=== PATIENT | male | born 1975 | race Caucasian/White ===

== ENCOUNTER 2019-04-30 19:00 | Observation (INO) | payer OTHER ==
[2019-04-30] MEDS ORDERED: METHYLPREDNISOLONE 125 MG INJ ONE (19:37)
[2019-04-30] MEDS ORDERED: FAMOTIDINE 20 MG/2 ML VIAL IV ONE (19:37)
[2019-04-30] MEDS ORDERED: DIPHENHYDRAMINE 50 MG/ML VIAL ONE (19:37)
[2019-04-30] MEDS ORDERED: EPINEPHRINE/PF 1 MG/ML AMP ONE (19:48)
[2019-04-30] MEDS ORDERED: EPINEPHRINE INH 0.5 ML VIAL IH ONE (19:51)
[2019-04-30] MEDS ORDERED: dexAMETHasone 10 MG/ML VIAL ONE (19:51)
[2019-04-30] MEDS ORDERED: DIPHENHYDRAMINE 50 MG/ML VIAL IV PRN (21:09)
--- NOTE | 2019-04-30 21:15 | ER ---
Nurse's Notes [facility] Name: Hamzah Mckeon Age: 44 yrs Sex: Male : 1975 Arrival Date: 04/30/2019 Time: 19:00 Bed 18 Private MD: Diagnosis: Angioneurotic edema Presentation: 04/30 19:02 Presenting complaint: Patient states: "My hole face is tingling and I feeling like jd3 under my tongue is swelling and it is harder to swallow." pt reporting mild difficulty of breathing. Transition of care: patient was not received from another setting of care. Onset: The symptoms/episode began/occurred just prior to arrival. Anaphylaxis evaluation, no signs or symptoms of anaphylaxis were noted. Onset of symptoms was April 30, 2019. Risk Assessment: Do you want to hurt yourself or someone else? Patient reports no desire to harm self or others. Initial Sepsis Screen: Does the patient meet any 2 criteria? No. Patient's initial sepsis screen is negative. Does the patient have a suspected source of infection? No. Patient's initial sepsis screen is negative. Care prior to arrival: None. 19:02 Method Of Arrival: Ambulatory jd3 19:02 Acuity: CHAKA 3 jd3 Historical: - Allergies: 19:06 No Known Allergies; jd3 - Home Meds: 19:06 losartan 100 mg oral tab [Active]; Hydrochlorothiazide Oral [Active]; carvedilol oral jd3 oral [Active]; - PMHx: 19:06 Hypertension; jd3 - PSHx: 19:06 left ankle, knee; right wrist; left eye; jd3 - Immunization history:: Adult Immunizations up to date. - Social history:: Smoking status: Patient/guardian denies using tobacco. - Ebola Screening: : Patient negative for fever greater than or equal to 101.5 degrees Fahrenheit, and additional compatible Ebola Virus Disease symptoms. Screenin:49 Abuse screen: Denies threats or abuse. Denies injuries from another. Nutritional rr5 screening: No deficits noted. Tuberculosis screening: No symptoms or risk factors identified. Fall Risk IV access (20 points). Total Singh Fall Scale indicates No Risk (0-24 pts). Assessment: 19:50 Reassessment: Pt moved to bed 2 at this time. General: Appears in no apparent distress. aa1 comfortable, Behavior is calm, cooperative, appropriate for age. Pain: Denies pain. Neuro: Level of Consciousness is awake, alert, obeys commands, Oriented to person, place, time, situation, Moves all extremities. Full function Speech is normal. Cardiovascular: Heart tones S1 S2 present Rhythm is regular. Respiratory: Airway is patent Respiratory effort is even, unlabored, Respiratory pattern is regular, symmetrical, Breath sounds are clear bilaterally. GI: No signs and/or symptoms were reported involving the gastrointestinal system. : No signs and/or symptoms were reported regarding the genitourinary system. EENT: Throat is clear minor swelling noted to lower lip. Derm: Skin is intact, is healthy with good turgor, Skin is pink, warm \\T\\ dry. Musculoskeletal: Circulation, motion, and sensation intact. Capillary refill < 3 seconds. 20:30 Reassessment: Patient appears in no apparent distress at this time. Patient and/or aa1 family updated on plan of care and expected duration. Pain level reassessed. Patient is alert, oriented x 3, equal unlabored respirations, skin warm/dry/pink. Awaiting provider reassessment. 21:31 Reassessment: Patient appears in no apparent distress at this time. Patient and/or aa1 family updated on plan of care and expected duration. Pain level reassessed. Patient is alert, oriented x 3, equal unlabored respirations, skin warm/dry/pink. Awaiting admission. Vital Signs: 19:06 BP 173 / 90; Pulse 95; Resp 19; Temp 98.8; Pulse Ox 96% ; Weight 142.88 kg; Height 6 jd3 ft. 1 in. (185.42 cm); Pain 6/10; 20:18 BP 153 / 92; Pulse 82; Resp 16; Pulse Ox 100% on R/A; Pain 0/10; aa1 21:31 BP 143 / 85; Pulse 84; Resp 16; Pulse Ox 99% on R/A; Pain 0/10; aa1 19:06 Body Mass Index 41.56 (142.88 kg, 185.42 cm) jd3 ED Course: 19:00 Patient arrived in ED. as 19:03 Triage completed. jd3 19:07 Arm band placed on. jd3 19:19 Cooper Reid PA is PHCP. dary 19:19 Mata Newton MD is Attending Physician. jmm 19:35 Inserted saline lock: 20 gauge in right hand, using aseptic technique. rr5 19:36 Carlos Ferguson RN is Primary Nurse. rr5 19:50 Patient has correct armband on for positive identification. Bed in low position. Call rr5 light in reach. Side rails up X2. Adult w/ patient. monitoring analyst on. Pulse ox on. NIBP on. 21:14 Victor M Jones MD is Hospitalizing Provider. [facility] 21:57 No provider procedures requiring assistance completed. Patient admitted, IV remains in aa1 place. Administered Medications: 19:36 Drug: Benadryl 50 mg Route: IVP; Site: right hand; rr5 05/01 07:40 Follow up: Response: No adverse reaction; Marked relief of symptoms em 04/30 19:38 Drug: Pepcid 20 mg Route: IVP; Site: right hand; rr5 05/01 07:40 Follow up: Response: No adverse reaction; Marked relief of symptoms em 04/30 19:40 Drug: SOLU-Medrol 125 mg Route: IVP; Site: right hand; rr5 05/01 07:40 Follow up: Response: No adverse reaction; Marked relief of symptoms em 04/30 19:50 Drug: Racemic EPINPHrine 0.5 ml Route: Inhalation; aj1 19:50 Drug: Decadron - Dexamethasone 10 mg Route: IVP; Site: right hand; aj1 05/01 07:40 Follow up: Response: No adverse reaction; Marked relief of symptoms em 07:40 Follow up: Response: No adverse reaction; Marked relief of symptoms em 04/30 19:50 Drug: EPINEPHrine 1mg/mL 1:1,000 0.3 ml Route: Sub-Q; Site: right upper arm; bb 05/01 07:40 Follow up: Response: No adverse reaction; Marked relief of symptoms em Outcome: 04/30 21:14 Decision to Hospitalize by Provider. m 23:00 Admitted to ER Hold. Please see [facility] for further documentation. tl2 23:00 Condition: stable 23:00 Discharge instructions given to patient. 05/01 08:21 Patient left the ED. em Signatures: Fatoumata Nava RN RN aj1 Karen Spring RN RN aa1 Cooper Reid PA PA jmm Munoz Pete, PROFESSOR OF FAMILY MEDICINE PROFESSOR OF FAMILY MEDICINE Essie Davis as Heather Merritt, RN RN bb Sarah Kim RN RN tl2 Rizwan Agustin RN RN jd3 Carlos Ferguson RN RN rr5 Corrections: (The following items were deleted from the chart) 04/30 19:07 19:02 Presenting complaint: Patient states: "My hole face is tingling and I feeling jd3 like under my tongue is swelling and it is harder to swallow." jd3
--- NOTE | 2019-04-30 21:16 | EDPHYS ---
Physician Documentation [facility] Name: Hamzah Mckeon Age: 44 yrs Sex: Male : 1975 Arrival Date: 04/30/2019 Time: 19:00 Bed 18 Private MD: ED Physician Mata Newton HPI: 04/30 19:28 This 44 yrs old Male presents to ER via Ambulatory with complaints of jmm Allergic Reaction. 19:28 The patient presents with difficulty swallowing, localized swelling. Onset: The jmm symptoms/episode began/occurred gradually, 1 hour(s) ago. Associated signs and symptoms: Pertinent positives: shortness of breath. This is a 44 year old male with a history of htn that presents to the ED with complaints of swelling to his face, neck. Patient states he recently took his bp medication which included carvedilol and losartan. Denies rash, vomiting, abdominal pain. . Historical: - Allergies: 19:06 No Known Allergies; jd3 - Home Meds: 19:06 losartan 100 mg oral tab [Active]; Hydrochlorothiazide Oral [Active]; carvedilol oral jd3 oral [Active]; - PMHx: 19:06 Hypertension; jd3 - PSHx: 19:06 left ankle, knee; right wrist; left eye; jd3 - Immunization history:: Adult Immunizations up to date. - Social history:: Smoking status: Patient/guardian denies using tobacco. - Ebola Screening: : Patient negative for fever greater than or equal to 101.5 degrees Fahrenheit, and additional compatible Ebola Virus Disease symptoms. ROS: 21:08 Cardiovascular: Negative for chest pain, palpitations, and edema, Abdomen/GI: Negative jmm for abdominal pain, nausea, vomiting, diarrhea, and constipation, Back: Negative for injury and pain. 21:08 Neck: Positive for swelling. 21:08 Respiratory: Positive for 21:08 All other systems are negative. Exam: 21:08 Constitutional: This is a well developed, well nourished patient who is awake, alert, jmm and in no acute distress. Head/Face: atraumatic. Eyes: EOMI, no conjunctival erythema appreciated ENT: Moist Mucus Membranes Neck: Trachea midline, Supple Chest/axilla: Normal chest wall appearance and motion. Cardiovascular: Regular rate and rhythm. No edema appreciated Respiratory: Normal respirations, no respiratory distress appreciated Abdomen/GI: Non distended, soft Back: Normal ROM 21:08 ENT: no pharyngeal edema appreciated. . 21:08 Skin: mild erythema noted to the perioral region. 21:08 Neuro: Orientation: is normal, Mentation: is normal, Memory: is normal. 21:08 Psych: Behavior/mood is pleasant, cooperative. Vital Signs: 19:06 BP 173 / 90; Pulse 95; Resp 19; Temp 98.8; Pulse Ox 96% ; Weight 142.88 kg; Height 6 jd3 ft. 1 in. (185.42 cm); Pain 6/10; 20:18 BP 153 / 92; Pulse 82; Resp 16; Pulse Ox 100% on R/A; Pain 0/10; aa1 21:31 BP 143 / 85; Pulse 84; Resp 16; Pulse Ox 99% on R/A; Pain 0/10; aa1 19:06 Body Mass Index 41.56 (142.88 kg, 185.42 cm) jd3 MDM: 19:28 Patient medically screened. [facility] 21:13 Data reviewed: vital signs, nurses notes. ED course: Patient states symptoms have not jmm improved. Will observe due to concerns for angioedema. I discussed the patient with Dr. Jones whom accepted admission. . 04/30 21:24 Order name: CBC with Automated Diff [facility] 04/30 21:24 Order name: CBC with Automated Diff [facility] 04/30 21:24 Order name: Comprehensive Metabolic Panel [facility] 04/30 21:24 Order name: Comprehensive Metabolic Panel [facility] 05/01 08:11 Order name: CBC Smear Scan [facility] 04/30 19:33 Order name: Saline Lock; Complete Time: 19:49 [facility] 04/30 21:24 Order name: CONS Pharmacy Consult [facility] 04/30 21:24 Order name: Regular EDMS Administered Medications: 19:36 Drug: Benadryl 50 mg Route: IVP; Site: right hand; rr5 05/01 07:40 Follow up: Response: No adverse reaction; Marked relief of symptoms em 04/30 19:38 Drug: Pepcid 20 mg Route: IVP; Site: right hand; rr5 05/01 07:40 Follow up: Response: No adverse reaction; Marked relief of symptoms em 04/30 19:40 Drug: SOLU-Medrol 125 mg Route: IVP; Site: right hand; rr5 05/01 07:40 Follow up: Response: No adverse reaction; Marked relief of symptoms em 04/30 19:50 Drug: Racemic EPINPHrine 0.5 ml Route: Inhalation; aj 19:50 Drug: Decadron - Dexamethasone 10 mg Route: IVP; Site: right hand; aj1 05/01 07:40 Follow up: Response: No adverse reaction; Marked relief of symptoms em 07:40 Follow up: Response: No adverse reaction; Marked relief of symptoms em 04/30 19:50 Drug: EPINEPHrine 1mg/mL 1:1,000 0.3 ml Route: Sub-Q; Site: right upper arm; bb 05/01 07:40 Follow up: Response: No adverse reaction; Marked relief of symptoms em Disposition: 04/30/19 21:14 Hospitalization ordered by Victor M Jones for Observation. Preliminary diagnosis is Angioneurotic edema. - Bed requested for [facility] ER HOLD. - Status is Observation. em - Condition is Stable. - Problem is new. - Symptoms are unchanged. UTI on Admission? No Addendum: 05/04/2019 09:25 Co-signature as Attending Physician, Mata Newton MD I agree with the assessment and c perez plan of care. Signatures: Dispatcher [employer] EDMS Fatoumata Nava RN RN aj1 Zulema Lentz RN RN mw Anderson, Corey, MD MD cha Mickail, Joel, PA PA [facility] Pete Villanueva, YOU[employer]RECTIONS OFFICER YOU[employer]RECTIONS OFFICER em Heather Merritt RN RN bb Davies, Jonathon, RN RN jCarlos Berrios RN RN rr5 Corrections: (The following items were deleted from the chart) 04/30 21:09 19:28 This is a 44 year old male with a history of htn that presents to the ED with [facility] complaints. [facility] 21:39 21:14 Hospitalization Ordered by Victor M Jones MD for Observation. Preliminary zoe diagnosis is Angioneurotic edema. Bed requested for Telemetry/MedSurg (observation). Status is Observation. Condition is Stable. Problem is new. Symptoms are unchanged. UTI on Admission? No. [facility] 05/01 08:21 04/30 21:39 04/30/2019 21:14 Hospitalization Ordered by Victor M Jones MD for em Observation. Preliminary diagnosis is Angioneurotic edema. Bed requested for [facility] ER HOLD. Status is Observation. Condition is Stable. Problem is new. Symptoms are unchanged. UTI on Admission? No. mw
[2019-04-30] MEDS ORDERED: NA CHLORIDE 0.9% 1,000 ML IV SCH (22:00)
[2019-04-30] MEDS ORDERED: ALBUTEROL 2.5 MG/3 ML NEB SOL NEB SCH (22:00)
[2019-04-30 22:57] VITALS: BMI 41.5
[2019-04-30] MEDS ORDERED: NA CHLORIDE 0.9% 1,000 ML ONE (23:14)
[2019-05-01] MEDS ORDERED: IPRATROPIUM BROM 0.5MG/2.5ML ONE (03:18)
[2019-05-01] MEDS: IPRATROPIUM BROM 0.5MG/2.5ML NEB SCH ×2 (03:20→08:00)
[2019-05-01 04:16] VITALS: BP 146/80; TEMP 98
[2019-05-01 05:11] LABS: Absolute Lymphocytes (CBC) 1.8 K/uL (0.7-4.9); Basophils % 0.7 % (0-1.3); Hematocrit 44.9 % (39.6-49.0); Lymphocytes % 10.7 % (15.3-44.8); MPV 9.4 fL (7.6-11.3); RBC Red Blood Cell Count 5.08 M/uL (4.33-5.43)
--- NOTE | 2019-05-01 05:26 | P.HP ---
Certification for Inpatient Patient admitted to: Observation With expected LOS: <2 Midnights Patient will require the following post-hospital care: None Practitioner: I am a practitioner with admitting privileges, knowledge of patient current condition, hospital course, and medical plan of care. Services: Services provided to patient in accordance with Admission requirements found in Title 42 Section 412.3 of the Code of Federal Regulations Patient History Date of Service: 05/01/19 Reason for admission: Angioedema History of Present Illness: Patient is a 44-year-old gentleman who came to the hospital with swelling of his tongue and throat. He was admitted to the hospital for further arrangement. Patient was given losartan and developed angioedema. Will admit patient to the hospital for further evaluation. Allergies No Known Allergies Allergy (Unverified 04/30/19 22:42) Home Medications: Bisoprolol/Hctz [Ziac 02/01.25*] 04/30/19 Carvedilol [Coreg] 12.5 mg PO DAILY 04/30/19 Losartan Potassium 100 mg PO DAILY 04/30/19 - Past Medical/Surgical History Has patient received pneumonia vaccine in the past: No Diabetic: No -: HTN -: Ankle - Family History Father Family History: Reviewed- Non-Contributory - Social History Smoking Status: Never smoker Alcohol use: No CD- Drugs: No Caffeine use: No Place of Residence: Home Review of Systems 10-point ROS is otherwise unremarkable Physical Examination - Vital Signs Temperature: 98 F Blood Pressure: 146/80 Pulse: 93 Respirations: 18 Pulse Ox (%): 96 - Physical Exam General: Alert, In no apparent distress, Oriented x3 HEENT: Atraumatic, PERRLA, Mucous membr. moist/pink, EOMI, Sclerae nonicteric Neck: Supple, 2+ carotid pulse no bruit, No LAD, Without JVD or thyroid abnormality Respiratory: Clear to auscultation bilaterally, Normal air movement Cardiovascular: Regular rate/rhythm, Normal S1 S2, No murmurs Gastrointestinal: Normal bowel sounds, Soft and benign, Non-distended, No tenderness, No rebound, No guarding Musculoskeletal: No clubbing, No swelling, No tenderness Integumentary: No rashes Neurological: Normal gait, Normal speech, Normal strength at 5/5 x4 extr, Normal tone, Sensation intact, Cranial nerves 3-12 intact, Normal affect Lymphatics: No axilla or inguinal lymphadenopathy Assessment & Plan - Problems (Diagnosis) (1) Angioedema Current Visit: Yes Status: Acute - Plan Plan: 1. Gentle hydration 2. Steroids 3. Benadryl 4. Pepcid 5. Anticipate discharge home in the morning 6. GI and DVT prophylaxis Discharge Plan: Home - Advance Directives Does patient have a Living Will: Yes Does patient have a Durable POA for Healthcare: Yes - Code Status/Comfort Care Code Status Assessed: Yes Code Status: Full Code Critical Care: No Time Spent Managing PTS Care (In Minutes): 40
[2019-05-01 05:30] LABS: Bilirubin Total 0.4 mg/dL (0.2-1.0); Protein, Total 8.3 g/dL (6.4-8.2)
[2019-05-01] MEDS ORDERED: INFLUENZA VACCINE (for 3y+) 0.5 ML DOSE IMVAC ONE ×2 (07:54→08:00)
[2019-05-01 08:05] LABS: Blood Morphology Comment NOT SEEN (NOT SEEN); Platelet Estimate ADEQ; Urine White Blood Cell Casts OK
[2019-05-01 08:48] VITALS: O2SAT 99
[2019-05-01] MEDS ORDERED: FAMOTIDINE 20 MG/2 ML VIAL IV SCH (09:00)
[2019-05-01] MEDS ORDERED: METHYLPREDNISOLONE 125 MG INJ IV SCH (22:00)
== END 2019-05-01 08:20 | disposition home or self-care (01) ==
LOC: ER 19:00 → ERHOLD 21:10
PROVIDERS: ADMIT Hospitalist; ATTEND Hospitalist
DX: T78.3XXA Angioneurotic edema, initial encounter (principal); T88.7XXA Unspecified adverse effect of drug or medicament, initial encounter; T46.5X5A Adverse effect of other antihypertensive drugs, initial encounter; I10 Essential (primary) hypertension
CPT/HCPCS: 85025; 36415; 80053; 90471; 94640; 96375; 96372; 96374; 99285; J0171; J1200; Q2035; J1100; J7030; J2930; G0378 ×3

== ENCOUNTER 2019-05-03 19:18 | Emergency (ER) | payer OTHER ==
[2019-05-03] MEDS ORDERED: METOPROLOL TAR 25 MG TAB ONE ×2 (20:17→21:00)
[2019-05-03] MEDS ORDERED: ACETAMINOPHEN 500 MG TAB ONE (20:17)
[2019-05-03] MEDS ORDERED: NA CHLORIDE 0.9% 1,000 ML ONE (20:17)
--- NOTE | 2019-05-03 20:24 | RAD REPORT ---
EXAM DESCRIPTION: RAD - Chest Single View - 05/03/2019 8:13 pm CLINICAL HISTORY: CHEST PAIN Chest pain. COMPARISON: No comparisons FINDINGS: Portable technique limits examination quality. The lungs are grossly clear. The heart is upper limit normal in size. No displaced fractures. IMPRESSION: No acute intrathoracic process suspected.
--- NOTE | 2019-05-03 20:28 | RAD REPORT ---
EXAM DESCRIPTION: CT - Head Brain Wo Cont - 05/03/2019 8:20 pm CLINICAL HISTORY: hypertension;Headache COMPARISON: No comparisons TECHNIQUE: All CT scans are performed using dose optimization technique as appropriate and may inclu de automated exposure control or mA/KV adjustment according to patient size. FINDINGS: No intracranial hemorrhage, hydrocephalus or extra-axial fluid collection.No areas of brai n edema or evidence of midline shift. The paranasal sinuses and mastoids are clear. The calvarium is intact. IMPRESSION: No acute intracranial abnormality.
[2019-05-03 20:44] LABS: Absolute Lymphocytes (CBC) 3.4 K/uL (0.7-4.9); Basophils % 0.8 % (0-1.3); Lymphocytes % 21.1 % (15.3-44.8); MPV 9.5 fL (7.6-11.3); RBC Red Blood Cell Count 4.74 M/uL (4.33-5.43)
[2019-05-03 20:50] LABS: Protime INR 0.85
[2019-05-03] MEDS ORDERED: ASPIRIN 81 MG CHEWABLE TABLET ONE (21:00)
[2019-05-03 22:35] LABS: ALT/SGPT 36 U/L (12-78); AST/SGOT 9 U/L (15-37); Alkaline Phosphatase 83 U/L (45-117); BUN Blood Urea Nitrogen 23 mg/dL (7-18); Bicarbonate 30 mmol/L (21-32); Bilirubin Direct < 0.1 mg/dL (0-0.2); Bilirubin Total 0.2 mg/dL (0.2-1.0); Glucose Level 143 mg/dL (74-106); Magnesium 2.3 mg/dL (1.8-2.4); NT PRO-BNP 193 pg/mL (<125); Potassium 3.6 mmol/L (3.5-5.1); Protein, Total 7.9 g/dL (6.4-8.2); Sodium Level 139 mmol/L (136-145); Troponin (Emerg Dept Use Only) < 0.02 ng/mL (0.0-0.045)
--- NOTE | 2019-05-03 23:15 | ER ---
Nurse's Notes [facility] Name: Hamzah Mckeon Age: 44 yrs Sex: Male : 1975 Arrival Date: 05/03/2019 Time: 19:19 Bed 17 Private MD: Diagnosis: Hypertensive heart disease;Headache Presentation: 05/03 19:23 Presenting complaint: Patient states: High BP at 198/105 and headache. "I was here ca1 for allergic reaction to Losartan, so they me took off of it. They did not give a as substitute to it. I have a schedule with my doctor tomorrow but I I got worried with my BP". Transition of care: patient was not received from another setting of care. Onset of symptoms was May 03, 2019. Risk Assessment: Do you want to hurt yourself or someone else? Patient reports no desire to harm self or others. Initial Sepsis Screen: Does the patient meet any 2 criteria? No. Patient's initial sepsis screen is negative. Does the patient have a suspected source of infection? No. Patient's initial sepsis screen is negative. Care prior to arrival: None. 19:23 Method Of Arrival: Ambulatory ca1 19:23 Acuity: CHAKA 3 ca1 Historical: - Allergies: 19:26 Losartan; ca1 - Home Meds: 19:26 carvedilol Oral [Active]; Hydrochlorothiazide Oral [Active]; ca1 - PMHx: 19:26 Hypertension; ca1 - Immunization history:: Adult Immunizations up to date, Flu vaccine is up to date. - Social history:: Smoking status: Patient/guardian denies using tobacco. - Ebola Screening: : Patient negative for fever greater than or equal to 101.5 degrees Fahrenheit, and additional compatible Ebola Virus Disease symptoms Patient denies exposure to infectious person Patient denies travel to an Ebola-affected area in the 21 days before illness onset No symptoms or risks identified at this time. Screenin:08 Abuse screen: Denies threats or abuse. Denies injuries from another. Nutritional lp1 screening: No deficits noted. Tuberculosis screening: No symptoms or risk factors identified. Fall Risk None identified. Assessment: 20:07 General: Appears in no apparent distress. Behavior is calm, cooperative, appropriate lp1 for age. Pain: Complains of pain in head Pain does not radiate. Pain currently is 8 out of 10 on a pain scale. Neuro: Level of Consciousness is awake, alert, obeys commands, Oriented to person, place, time, situation, Reports headache. Cardiovascular: Patient's skin is warm and dry. Respiratory: Respiratory effort is even, unlabored. GI: No signs and/or symptoms were reported involving the gastrointestinal system. : No signs and/or symptoms were reported regarding the genitourinary system. EENT: No signs and/or symptoms were reported regarding the EENT system. Derm: Skin is pink, warm \\T\\ dry. Musculoskeletal: No deficits noted. 21:15 Reassessment: Patient appears in no apparent distress at this time. No changes from lp1 previously documented assessment. Patient and/or family updated on plan of care and expected duration. Pain level reassessed. 22:30 Reassessment: Patient is alert, oriented x 3, equal unlabored respirations, skin lp1 warm/dry/pink. Patient states headache improved Patient states feeling better. 23:30 Reassessment: Patient appears in no apparent distress at this time. No changes from lp1 previously documented assessment. Patient states feeling better. Patient states symptoms have improved. Vital Signs: 19:26 BP 183 / 97; Pulse 77; Resp 16 S; Temp 98.4(O); Pulse Ox 100% on R/A; Weight 145.15 kg ca1 (R); Height 6 ft. 1 in. (185.42 cm) (R); Pain 7/10; 19:45 BP 182 / 91; Pulse 79; Resp 18; Pulse Ox 98% on R/A; lp1 20:00 BP 170 / 94; Pulse 84; Resp 17; Pulse Ox 99% on R/A; lp1 21:00 BP 186 / 99; Pulse 72; Resp 18; Pulse Ox 98% on R/A; lp1 21:27 BP 165 / 93; Pulse 68; Resp 18; Pulse Ox 99% on R/A; lp1 22:30 BP 172 / 90; Pulse 66; Resp 18; Pulse Ox 99% on R/A; lp1 23:00 BP 162 / 91; Pulse 67; Resp 18; Pulse Ox 98% on R/A; lp1 23:48 BP 153 / 95; Pulse 65; Resp 18; Pulse Ox 98% on R/A; lp1 19:26 Body Mass Index 42.22 (145.15 kg, 185.42 cm) ca1 ED Course: 19:19 Patient arrived in ED. cl3 19:24 Mata Galicia PA is PHCP. cp 19:24 Mata Newton MD is Attending Physician. cp 19:25 Triage completed. ca1 19:26 Shawnee Washington, RN is Primary Nurse. lp1 19:26 Arm band placed on right wrist. ca1 20:09 Patient has correct armband on for positive identification. Placed in gown. Bed in low lp1 position. final armature tester on. Pulse ox on. NIBP on. 20:12 XRAY Chest (1 view) In Process Unspecified. EDMS 20:20 CT completed. Patient tolerated procedure well. Patient moved back from CT. bq 20:21 CT Head Brain wo Cont In Process Unspecified. EDMS 20:42 Missed attempt(s): 20 gauge in right hand. lp1 20:51 Missed attempt(s): 20 gauge in left antecubital area. lp1 23:20 No provider procedures requiring assistance completed. IV discontinued, No lp1 redness/swelling at site. Pressure dressing applied. Administered Medications: 20:30 Drug: Metoprolol 25 mg Route: PO; lp1 21:36 Follow up: Response: No adverse reaction lp1 20:30 Drug: Tylenol 1000 mg Route: PO; lp1 21:36 Follow up: Response: No adverse reaction lp1 21:36 Drug: Aspirin Chewable Tablet 324 mg Route: PO; lp1 22:30 Follow up: Response: No adverse reaction lp1 21:36 Drug: Metoprolol 25 mg Route: PO; lp1 23:00 Follow up: Response: Blood pressure is lowered lp1 22:00 Drug: NS 0.9% 1000 ml Route: IV; Rate: 1 bolus; Site: left antecubital; jb4 Outcome: 23:13 Discharge ordered by . cp 23:30 Discharged to home ambulatory, with significant other. lp1 23:30 Condition: good 23:30 Discharge instructions given to patient, Instructed on discharge instructions, follow up and referral plans. medication usage, Demonstrated understanding of instructions, follow-up care, medications, Prescriptions given X 1. 23:49 Patient left the ED. lp1 Signatures: Dispatcher [employer] EDMS Radha Noguera Shawnee Washington RN RN lp1 PageMata PA PA cp Bryson, James, RN RN jb4 Maria De Jesus Soler, RN RN ca1 Walter Tena cl3
--- NOTE | 2019-05-03 23:16 | EDPHYS ---
Physician Documentation [facility] Name: Hamzah Mckeon Age: 44 yrs Sex: Male : 1975 Arrival Date: 05/03/2019 Time: 19:19 Bed 17 Private MD: WILL Physician Mata Newton HPI: 05/03 20:00 This 44 yrs old Male presents to ER via Ambulatory with complaints of High cp Blood Pressure. 20:00 The patient has elevated blood pressure and discovered this at home. Onset: The cp symptoms/episode began/occurred today. Associated signs and symptoms: Pertinent positives: headache, chest heaviness since , Pertinent negatives: dizziness, dyspnea, vomiting, weakness. Severity of symptoms: At its worst the blood pressure was 198 mm Hg. The patient has been recently been admitted at [facility], was discharged last week, allergic reaction to blood pressure medication. Patient reports he was hospitalized last for allergic reaction to blood pressure medication Losartan. Patient reports medication was discontinued but he was not prescribed replacement blood pressure medication. Patient reports having appt with PCP tomorrow. Measured elevated blood pressure today. Historical: - Allergies: 19:26 Losartan; ca1 - Home Meds: 19:26 carvedilol Oral [Active]; Hydrochlorothiazide Oral [Active]; ca1 - PMHx: 19:26 Hypertension; ca1 - Immunization history:: Adult Immunizations up to date, Flu vaccine is up to date. - Social history:: Smoking status: Patient/guardian denies using tobacco. - Ebola Screening: : Patient negative for fever greater than or equal to 101.5 degrees Fahrenheit, and additional compatible Ebola Virus Disease symptoms Patient denies exposure to infectious person Patient denies travel to an Ebola-affected area in the 21 days before illness onset No symptoms or risks identified at this time. ROS: 20:10 Constitutional: Negative for body aches, chills, fever, poor PO intake. cp 20:10 Eyes: Negative for injury, pain, redness, and discharge. cp 20:10 ENT: Negative for drainage from ear(s), ear pain, sore throat, difficulty swallowing, difficulty handling secretions. 20:10 Cardiovascular: Positive for chest heaviness, Negative for edema, palpitations. 20:10 Respiratory: Negative for cough, shortness of breath, wheezing. 20:10 Abdomen/GI: Negative for abdominal pain, nausea, vomiting, and diarrhea, black/tarry stool, rectal bleeding. 20:10 Back: Negative for pain at rest, pain with movement, radiated pain. 20:10 : Negative for urinary symptoms. 20:10 Skin: Negative for rash. 20:10 Neuro: Positive for headache, Negative for altered mental status, syncope, weakness. 20:10 All other systems are negative. Exam: 20:18 Constitutional: The patient appears in no acute distress, alert, awake, cp non-diaphoretic, non-toxic, well developed, well nourished, obese. 20:18 Head/Face: Normocephalic, atraumatic. cp 20:18 Eyes: Periorbital structures: appear normal, Pupils: equal, round, and reactive to light and accomodation, Extraocular movements: intact throughout, Conjunctiva: normal, no exudate, no injection, Sclera: no appreciated abnormality, Lids and lashes: appear normal, bilaterally. 20:18 ENT: External ear(s): are unremarkable, Ear canal(s): are normal, clear, TM's: dullness, bilaterally, Nose: is normal, Mouth: Lips: moist, Oral mucosa: pink and intact, moist, Posterior pharynx: is normal, airway is patent, no erythema, no exudate, Voice: is normal. 20:18 Neck: ROM/movement: is normal, is supple, without pain, no range of motions limitations, no nuchal rigidity. 20:18 Chest/axilla: Inspection: normal, Palpation: is normal, no crepitus, no tenderness. 20:18 Cardiovascular: Rate: normal, Rhythm: regular, Pulses: Pulses are 2+ in right radial artery and left radial artery. Edema: is not appreciated, JVD: is not appreciated. 20:18 Respiratory: the patient does not display signs of respiratory distress, Respirations: normal, no use of accessory muscles, no retractions, no splinting, no tachypnea, labored breathing, is not present, Breath sounds: are clear throughout, no decreased breath sounds, no stridor, no wheezing. 20:18 Abdomen/GI: Inspection: abdomen appears normal, Palpation: abdomen is soft and non-tender, in all quadrants. 20:18 Back: pain, is absent, ROM is normal. 20:18 Skin: no rash present. 20:18 Neuro: Orientation: to person, place \T\ time. Mentation: is normal, Cerebellar function: is grossly normal, Motor: moves all fours, strength is normal, Sensation: is normal. 20:20 ECG was reviewed by the Attending Physician. cp Vital Signs: 19:26 BP 183 / 97; Pulse 77; Resp 16 S; Temp 98.4(O); Pulse Ox 100% on R/A; Weight 145.15 kg ca1 (R); Height 6 ft. 1 in. (185.42 cm) (R); Pain 7/10; 19:45 BP 182 / 91; Pulse 79; Resp 18; Pulse Ox 98% on R/A; lp1 20:00 BP 170 / 94; Pulse 84; Resp 17; Pulse Ox 99% on R/A; lp1 21:00 BP 186 / 99; Pulse 72; Resp 18; Pulse Ox 98% on R/A; lp1 21:27 BP 165 / 93; Pulse 68; Resp 18; Pulse Ox 99% on R/A; lp1 22:30 BP 172 / 90; Pulse 66; Resp 18; Pulse Ox 99% on R/A; lp1 23:00 BP 162 / 91; Pulse 67; Resp 18; Pulse Ox 98% on R/A; lp1 23:48 BP 153 / 95; Pulse 65; Resp 18; Pulse Ox 98% on R/A; lp1 19:26 Body Mass Index 42.22 (145.15 kg, 185.42 cm) ca1 MDM: 19:27 Patient medically screened. cp 20:30 Differential diagnosis: hypertensive crisis, Malignant HTN, CVA, intracerebral cp hemorrhage, acute MD. 23:12 Data reviewed: vital signs, nurses notes, lab test result(s), EKG, radiologic studies, cp CT scan, plain films, and as a result, I will discharge patient. 23:12 Test interpretation: by ED physician or midlevel provider: ECG, plain radiologic cp studies, chest xray negative for infiltrates. Counseling: I had a detailed discussion with the patient and/or guardian regarding: the historical points, exam findings, and any diagnostic results supporting the discharge/admit diagnosis, the presence of at least one elevated blood pressure reading (>120/80) during this emergency department visit, lab results, radiology results, the need for outpatient follow up, for definitive care, a family practitioner, to return to the emergency department if symptoms worsen or persist or if there are any questions or concerns that arise at home. Response to treatment: the patient's symptoms have markedly improved after treatment, and as a result, I will discharge patient. 05/03 20: Order name: Basic Metabolic Panel; Complete Time: 23:07 cp 05/03 23:07 Interpretation: Normal except: GLUC 143; BUN 23. cp 05/03 20: Order name: CBC with Diff; Complete Time: 20:51 cp 05/03 20:51 Interpretation: Normal except: WBC 16.0; NEUT A 10.5; MNA 1.6. cp 05/03 20: Order name: LFT's; Complete Time: 23:07 cp 05/03 20: Order name: Magnesium; Complete Time: 23:07 cp 05/03 20: Order name: NT PRO-BNP; Complete Time: 23:07 cp 05/03 20:01 Order name: PT-INR; Complete Time: 23:07 cp 05/03 20: Order name: Troponin (emerg Dept Use Only); Complete Time: 23:07 cp 05/03 23:07 Interpretation: Within normal limits. cp 05/03 20: Order name: XRAY Chest (1 view); Complete Time: 20:51 cp 05/03 20:51 Interpretation: Report review. cp 05/03 20: Order name: CT Head Brain wo Cont; Complete Time: 20:51 cp 05/03 20:52 Interpretation: Report reviewed. cp 05/03 20: Order name: EKG; Complete Time: 20:02 cp 05/03 20: Order name: Cardiac monitoring; Complete Time: 20:22 cp 05/03 20: Order name: EKG - Nurse/Tech; Complete Time: 20:22 cp 05/03 20: Order name: IV Saline Lock; Complete Time: 22:19 cp 05/03 20: Order name: Labs collected and sent; Complete Time: 20:52 cp 05/03 20: Order name: O2 Per Protocol; Complete Time: 20:22 cp 05/03 20:01 Order name: O2 Sat Monitoring; Complete Time: 20:22 cp EC:20 Rate is 74 beats/min. Rhythm is regular. CO interval is normal. QRS interval is cp prolonged at 118 msec. QT interval is normal. Interpreted by me. Reviewed by me. Administered Medications: 20:30 Drug: Metoprolol 25 mg Route: PO; lp1 21:36 Follow up: Response: No adverse reaction lp1 20:30 Drug: Tylenol 1000 mg Route: PO; lp1 21:36 Follow up: Response: No adverse reaction lp1 21:36 Drug: Aspirin Chewable Tablet 324 mg Route: PO; lp1 22:30 Follow up: Response: No adverse reaction lp1 21:36 Drug: Metoprolol 25 mg Route: PO; lp1 23:00 Follow up: Response: Blood pressure is lowered lp1 22:00 Drug: NS 0.9% 1000 ml Route: IV; Rate: 1 bolus; Site: left antecubital; jb4 Disposition: 05/04 09:50 Co-signature as Attending Physician, Mata Newton MD I agree with the assessment and bill plan of care. Disposition: 05/03/19 23:13 Discharged to Home. Impression: Hypertensive heart disease, Headache. - Condition is Stable. - Discharge Instructions: General Headache Without Cause, Hypertension, How to Take Your Blood Pressure, [id number], Aspirin and Your Heart, Managing Your Hypertension. - Prescriptions for Metoprolol Tartrate 25 mg Oral Tablet - take 1 tablet by ORAL route 2 times per day with a meal; 20 tablet. - Medication Reconciliation Form, Thank You Letter, Antibiotic Education, Prescription Opioid Use form. - Follow up: Private Physician; When: Tomorrow; Reason: Recheck today's complaints. - Problem is an ongoing problem. - Symptoms have improved. Signatures: Dispatcher [employer] EDMata Diallo MD MD cha Pena, Laura RN RN lp1 Mata Galicia PA PA cp Bryson, James, RN RN jb4 Maria De Jesus Soler RN RN ca1 Corrections: (The following items were deleted from the chart) 05/03 20:51 20:51 Normal except: WBC 16.0; NEUT A 10.5. cp cp 23:49 23:13 05/03/2019 23:13 Discharged to Home. Impression: Hypertensive heart disease; lp1 Headache. Condition is Stable. Forms are Medication Reconciliation Form, Thank You Letter, Antibiotic Education, Prescription Opioid Use. Follow up: Private Physician; When: Tomorrow; Reason: Recheck today's complaints. Problem is an ongoing problem. Symptoms have improved. cp
[2019-05-04 01:16] VITALS: TEMP 98.4
[2019-05-04 01:25] VITALS: O2SAT 98
[2019-05-04 01:26] VITALS: BP 153/95
--- NOTE | 2019-05-04 05:30 | EKG ---
Test Date: 2019-05-03 Test Time: 20:13:41 Parts Technician: DAMI MEASUREMENT RESULTS: Intervals: Rate: 74 ME: 168 QRSD: 118 QT: 414 QTc: 459 Mitchell: P: 64 ME: 168 QRS: 92 T: 32 INTERPRETIVE STATEMENTS: Normal sinus rhythm Rightward axis Nonspecific intraventricular conduction delay Borderline ECG No previous ECG available for comparison Electronically Signed On 05-04-19 05:30:10 THREAD DRAWER by Armando Mata
== END 2019-05-03 23:49 | disposition home or self-care (01) ==
LOC: ER 19:18
DX: I11.9 Hypertensive heart disease without heart failure (principal); Z88.8 Allergy status to other drugs, medicaments and biological substances
CPT/HCPCS: 93005; 85025; 80048; 36415; 83735; 85610; 80076; 84484; 83880; 70450; 71045; 99285; J7030

== ENCOUNTER 2019-05-17 16:19 | Emergency (ER) | payer OTHER ==
[2019-05-17] MEDS ORDERED: HYDROCODONE/APAP 10/325 TAB ONE (16:45)
[2019-05-17] MEDS ORDERED: LIDOCAINE 2% MPF 5 ML VIAL ONE (16:45)
--- NOTE | 2019-05-17 18:05 | ER ---
Nurse's Notes [facility] Name: Hamzah Mckeon Age: 44 yrs Sex: Male : 1975 Arrival Date: 05/17/2019 Time: 16:22 Bed 27 Private MD: Diagnosis: Laceration with foreign body of left index finger without damage to nail Presentation: 05/17 16:35 Presenting complaint: Patient states: His left index finger got smashed in the boom of aj1 a repo truck. Laceration to left index finger, bleeding controlled. Transition of care: patient was not received from another setting of care. Onset of symptoms was May 17, 2019. Risk Assessment: Do you want to hurt yourself or someone else? Patient reports no desire to harm self or others. Initial Sepsis Screen: Does the patient meet any 2 criteria? No. Patient's initial sepsis screen is negative. Does the patient have a suspected source of infection? No. Patient's initial sepsis screen is negative. Care prior to arrival: None. 16:35 Method Of Arrival: Ambulatory [facility] 16:35 Acuity: CHAKA 4 aj1 Triage Assessment: 16:38 General: Appears in no apparent distress. uncomfortable, Behavior is calm, cooperative, aj1 appropriate for age. Pain: Complains of pain in dorsal aspect of middle phalanx of left index finger and dorsal aspect of proximal phalanx of left index finger. Historical: - Allergies: 16:38 Losartan; aj1 - Home Meds: 16:38 carvedilol Oral [Active]; Hydrochlorothiazide Oral [Active]; Metformin Oral [Active]; aj1 atorvastatin oral oral [Active]; - PMHx: 16:38 Hypertension; Diabetes - NIDDM; aj1 - Immunization history:: Last tetanus immunization: up to date. - Social history:: Smoking status: Patient/guardian denies using tobacco. - Ebola Screening: : Patient denies travel to an Ebola-affected area in the 21 days before illness onset. Screenin:39 Abuse screen: Denies threats or abuse. Denies injuries from another. Nutritional aj1 screening: No deficits noted. Tuberculosis screening: No symptoms or risk factors identified. 19:03 Fall Risk None identified. aj1 Assessment: 16:39 General: Appears in no apparent distress. uncomfortable, Behavior is calm, cooperative, aj1 appropriate for age. Pain: Complains of pain in dorsal aspect of middle phalanx of left index finger and dorsal aspect of proximal phalanx of left index finger. Neuro: Level of Consciousness is awake, alert, obeys commands, Oriented to person, place, time, situation. Cardiovascular: Patient's skin is warm and dry. Respiratory: Airway is patent Respiratory effort is even, unlabored, Respiratory pattern is regular, symmetrical. GI: No signs and/or symptoms were reported involving the gastrointestinal system. : No signs and/or symptoms were reported regarding the genitourinary system. EENT: No signs and/or symptoms were reported regarding the EENT system. Derm: Skin is pink, warm \T\ dry. Musculoskeletal: Range of motion: limited in DIP of left index finger, PIP of left index finger and MCP of left index finger. Injury Description: Laceration sustained to left index finger. 17:45 Reassessment: Patient appears in no apparent distress at this time. No changes from aj1 previously documented assessment. Patient and/or family updated on plan of care and expected duration. Pain level reassessed. Patient is alert, oriented x 3, equal unlabored respirations, skin warm/dry/pink. 18:45 Reassessment: Patient appears in no apparent distress at this time. No changes from aj1 previously documented assessment. Patient and/or family updated on plan of care and expected duration. Pain level reassessed. Patient is alert, oriented x 3, equal unlabored respirations, skin warm/dry/pink. Vital Signs: 16:38 BP 153 / 100; Pulse 82; Resp 18; Temp 98.2; Pulse Ox 100% on R/A; Weight 142.88 kg (R); aj1 Height 6 ft. 1 in. (185.42 cm) (R); Pain 8/10; 19:03 BP 147 / 92; Pulse 88; Resp 18; Pulse Ox 97% ; aj1 16:38 Body Mass Index 41.56 (142.88 kg, 185.42 cm) aj1 ED Course: 16:22 Patient arrived in ED. mr 16:30 [facility]aw [facility]C [facility] la1 16:31 Victor M Chávez MD is Attending Physician. la1 16:35 Fatoumata Nava RN is Primary Nurse. aj1 16:36 Triage completed. aj1 16:38 Arm band placed on. aj1 16:39 Patient has correct armband on for positive identification. aj1 16:39 No provider procedures requiring assistance completed. aj1 17:28 Hand Left 3 View XRAY In Process Unspecified. EDMS 19:00 Dressings: non-adherent dressing x 1 left index finger covered with Kerlix and secured aj1 with tape. 19:03 Patient did not have IV access during this emergency room visit. aj1 Administered Medications: 16:45 Drug: Justin 10 mg-325 mg 1 tabs Route: PO; aj1 19:04 Follow up: Response: No adverse reaction aj1 16:45 Drug: Lidocaine (2 %) 5 ml {Note: Adminsitered by Hakeem Bailey NP.} Volume: 5 ml; Route: aj1 Infiltration; 19:04 Follow up: Response: No adverse reaction aj1 Outcome: 18:05 Discharge ordered by MD. la1 19:03 Discharged to home ambulatory. aj1 19:03 Condition: good 19:03 Discharge instructions given to patient, Instructed on discharge instructions, follow up and referral plans. wound care, Demonstrated understanding of instructions, follow-up care, wound care. 19:04 Patient left the ED. aj1 Signatures: Dispatcher [employer] EDMS Fatoumata Nava RN RN aj Lucia Kevin Lee, BIOSTATISTICS MANAGER-C BIOSTATISTICS MANAGER-Cla1 Corrections: (The following items were deleted from the chart) 16:52 16:35 Presenting complaint: Patient states: His right index finger got smashed in the aj1 boom of a repo truck. Laceration to right index finger, bleeding controlled aj1 16:53 16:38 Pain: Complains of pain in dorsal aspect of middle phalanx of right index finger aj1 and dorsal aspect of proximal phalanx of right index finger aj1 16:53 16:39 Pain: Complains of pain in dorsal aspect of proximal phalanx of right index aj1 finger and dorsal aspect of middle phalanx of right index finger aj1 16:53 16:39 Musculoskeletal: Range of motion: limited in DIP of right index finger, PIP of aj1 right index finger and MCP of right index finger aj1 16:53 16:39 Injury Description: Laceration sustained to right index finger aj1 aj1
--- NOTE | 2019-05-17 18:06 | EDPHYS ---
Physician Documentation [facility] Name: Hamzah Mckeon Age: 44 yrs Sex: Male : 1975 Arrival Date: 05/17/2019 Time: 16:22 Bed 27 Private MD: ED Physician Victor M Chávez HPI: 05/17 16:52 This 44 yrs old Male presents to ER via Ambulatory with complaints of Finger la1 laceration. 16:52 The patient or guardian reports a laceration, irregular, 4 cm(s), ragged. The la1 complaints affect the palmar aspect of middle phalanx of left index finger and palmar aspect of proximal phalanx of left index finger. Context: The problem was sustained at work, resulted from a crush injury, by industrial equipment. Onset: The symptoms/episode began/occurred just prior to arrival. Modifying factors: The symptoms are alleviated by nothing, the symptoms are aggravated by movement. Associated signs and symptoms: Pertinent negatives: cyanosis distally, decreased sensation distally, nausea, numbness distally, tingling distally. Severity of symptoms: At their worst the symptoms were moderate. The patient has not experienced similar symptoms in the past. pt reports his finger was crushed in a boom from a repo truck at work. Historical: - Allergies: 16:38 Losartan; aj1 - Home Meds: 16:38 carvedilol Oral [Active]; Hydrochlorothiazide Oral [Active]; Metformin Oral [Active]; aj1 atorvastatin oral oral [Active]; - PMHx: 16:38 Hypertension; Diabetes - NIDDM; aj1 - Immunization history:: Last tetanus immunization: up to date. - Social history:: Smoking status: Patient/guardian denies using tobacco. - Ebola Screening: : Patient denies travel to an Ebola-affected area in the 21 days before illness onset. ROS: 16:53 Constitutional: Negative for fever, chills, and weight loss, Eyes: Negative for injury, la1 pain, redness, and discharge, ENT: Negative for injury, pain, and discharge, Neck: Negative for injury, pain, and swelling, Cardiovascular: Negative for chest pain, palpitations, and edema, Respiratory: Negative for shortness of breath, cough, wheezing, and pleuritic chest pain, Abdomen/GI: Negative for abdominal pain, nausea, vomiting, diarrhea, and constipation, Back: Negative for injury and pain, : Negative for injury, bleeding, discharge, and swelling. 16:53 Neuro: Negative for headache, weakness, numbness, tingling, and seizure. 16:53 MS/extremity: Positive for pain, tenderness, of the palmar aspect of proximal phalanx of left index finger. 16:53 Skin: Positive for laceration(s), of the MCP of left index finger and PIP of left index finger. Exam: 16:54 Constitutional: This is a well developed, well nourished patient who is awake, alert, la1 and in no acute distress. Head/Face: Normocephalic, atraumatic. Eyes: Pupils equal round and reactive to light, extra-ocular motions intact. ENT: . Mucous membranes moist. Neck: No Meningismus. Chest/axilla: Normal chest wall appearance and motion. Respiratory: No increased work of breathing Abdomen/GI: Soft, non-tender, with normal bowel sounds. Back: No spinal tenderness. No costovertebral tenderness. Full range of motion. 16:54 MS/ Extremity: Pulses equal, no cyanosis. Neurovascular intact. Full, normal range of motion. 16:54 Skin: injury, laceration(s), the wound is approximately 4 cm(s), with a depth of 1 cm(s), of the MCP of left index finger and PIP of left index finger, that can be described as no foreign body, irregular, jagged, with mild bleeding. Vital Signs: 16:38 BP 153 / 100; Pulse 82; Resp 18; Temp 98.2; Pulse Ox 100% on R/A; Weight 142.88 kg (R); aj1 Height 6 ft. 1 in. (185.42 cm) (R); Pain 8/10; 19:03 BP 147 / 92; Pulse 88; Resp 18; Pulse Ox 97% ; aj1 16:38 Body Mass Index 41.56 (142.88 kg, 185.42 cm) aj1 Procedures: 16:50 Nerve block: (digital) of dorsal aspect of proximal phalanx of left index finger la1 Medication: Lidocaine 1% without epinephrine Marcaine 0.5%, Amount: 4 mls were injected, Effect: the patient's symptoms are improved, Set up for procedure. Performed by Yaw Attema PICKLE SORTER-C Patient tolerated well. Laceration: 18:03 Wound Repair of 5cm ( 2.0in ) subcutaneous laceration to palmar aspect of middle la1 phalanx of left index finger and palmar aspect of proximal phalanx of left index finger. Irregularly shaped.. Distal neuro/vascular/tendon intact. Anesthesia: Digital block administered with 4 mls of 0.5% marcaine. Wound prep: Moderate cleansing, Wound irrigation with saline by nurse, Wound margin revised, Copious irrigation. Skin closed with 9 4-0 Prolene using simple sutures and sterile technique. Dressed with non-adherent dressing. Patient tolerated well. MDM: 16:31 Patient medically screened. la1 18:08 Data reviewed: vital signs, nurses notes, I have discussed the patient's la1 presentation/case with the attending Emergency Department Physician; and as a result, I will discharge patient. Data interpreted: Pulse oximetry: on room air is 100 %. Interpretation: normal. Counseling: I had a detailed discussion with the patient and/or guardian regarding: the historical points, exam findings, and any diagnostic results supporting the discharge/admit diagnosis, the presence of at least one elevated blood pressure reading (>120/80) during this emergency department visit, radiology results, the need for outpatient follow up, a family practitioner, to return to the emergency department if symptoms worsen or persist or if there are any questions or concerns that arise at home. 05/17 16:35 Order name: Hand Left 3 View XRAY la1 05/17 16:35 Order name: Suture Tray at Bedside; Complete Time: 17:09 la1 Administered Medications: 16:45 Drug: Pelzer 10 mg-325 mg 1 tabs Route: PO; aj1 19:04 Follow up: Response: No adverse reaction aj1 16:45 Drug: Lidocaine (2 %) 5 ml {Note: Adminsitered by Hakeem Bailey DELICATESSEN MANAGER.} Volume: 5 ml; Route: aj1 Infiltration; 19:04 Follow up: Response: No adverse reaction aj1 Disposition: 05/18 15:53 Co-signature as Attending Physician, Victor M Chávez MD. ma2 Disposition: 05/17/19 18:05 Discharged to Home. Impression: Laceration with foreign body of left index finger without damage to nail. - Condition is Stable. - Discharge Instructions: Laceration Care, Adult, Sutured Wound Care. - Prescriptions for Tylenol- Codeine #3 300-30 mg Oral Tablet - take 2 tablets by ORAL route every 6 hours As needed; 20 tablet. - Medication Reconciliation Form, Thank You Letter, Prescription Opioid Use form. - Follow up: Private Physician; When: 7 - 10 days; Reason: Recheck today's complaints, Re-evaluation by your physician. - Problem is new. - Symptoms have improved. Signatures: Dispatcher [employer] EDFatoumata Paniagua RN RN aj1 Yaw Bailey, PICKLE SORTER-C PICKLE SORTER-Cla1 Victor M Chávez MD MD ma2 Corrections: (The following items were deleted from the chart) 05/17 19:04 18:05 05/17/2019 18:05 Discharged to Home. Impression: Laceration with foreign body of aj1 left index finger without damage to nail. Condition is Stable. Forms are Medication Reconciliation Form, Thank You Letter, Antibiotic Education, Prescription Opioid Use. Follow up: Private Physician; When: 7 - 10 days; Reason: Recheck today's complaints, Re-evaluation by your physician. Problem is new. Symptoms have improved. la1
--- NOTE | 2019-05-17 18:55 | RAD REPORT ---
EXAM DESCRIPTION: RAD - Hand Left 3 View - 05/17/2019 5:28 pm CLINICAL HISTORY: Blunt force trauma to the left hand, pain to the left index finger COMPARISON: None. FINDINGS: No fracture, dislocation or periosteal reaction noted. Soft tissue wound and soft tissue c ontusion and edema changes are present in the second digit. No air or foreign body. IMPRESSION: No fracture or acute finding of the left hand. Soft tissue wound with edema and contusion change second digit.
[2019-05-17 20:14] VITALS: TEMP 98.2
[2019-05-17 20:16] VITALS: BP 147/92; O2SAT 97
== END 2019-05-17 19:04 | disposition home or self-care (01) ==
LOC: ER 16:19
PROC: 0JQK0ZZ Repair Left Hand Subcutaneous Tissue and Fascia, Open Approach (ICD-10-PCS; principal; 2019-05-17)
DX: S61.211A Laceration without foreign body of left index finger without damage to nail, initial encounter (principal); W23.0XXA Caught, crushed, jammed, or pinched between moving objects, initial encounter; Y93.89 Activity, other specified; Y92.89 Other specified places as the place of occurrence of the external cause; Y99.0 Civilian activity done for income or pay
CPT/HCPCS: 64450; 99283

== ENCOUNTER 2019-05-27 18:25 | Emergency (ER) | payer OTHER ==
--- NOTE | 2019-05-27 19:17 | ER ---
Nurse's Notes [facility] Name: Hamzah Mckeon Age: 44 yrs Sex: Male : 1975 Arrival Date: 05/27/2019 Time: 18:25 Bed 12 Private MD: Diagnosis: Encounter for removal of sutures Presentation: 05/27 18:53 Presenting complaint: Patient states: Sutures to left pointer finger placed 05-17-2019 jl7 need to be removed. Transition of care: patient was not received from another setting of care. Onset of symptoms was May 17, 2019. Risk Assessment: Do you want to hurt yourself or someone else? Patient reports no desire to harm self or others. Initial Sepsis Screen: Does the patient meet any 2 criteria? No. Patient's initial sepsis screen is negative. Does the patient have a suspected source of infection? No. Patient's initial sepsis screen is negative. Care prior to arrival: None. 18:53 Method Of Arrival: Ambulatory jl7 18:53 Acuity: CHAKA 4 jl7 Historical: - Allergies: 18:55 Losartan; jl7 - Home Meds: 18:55 atorvastatin Oral [Active]; carvedilol Oral [Active]; Hydrochlorothiazide Oral jl7 [Active]; Metformin Oral [Active]; - PMHx: 18:55 Diabetes - NIDDM; Hypertension; jl7 - Immunization history:: Adult Immunizations up to date. - Coronavirus screen:: The patient has NOT traveled to [place], [place], or [place] in the past 14 days. Proceed with normal triage process as indicated. - Social history:: Smoking status: Patient denies any tobacco usage or history of. - Ebola Screening: : No symptoms or risks identified at this time. Screenin:52 Abuse screen: Denies threats or abuse. Nutritional screening: No deficits noted. bb Tuberculosis screening: No symptoms or risk factors identified. Fall Risk None identified. Assessment: 19:35 General: Appears in no apparent distress. Behavior is calm, cooperative. Pain: Denies bb pain. Neuro: Level of Consciousness is awake, alert, obeys commands, Oriented to person, place, time, situation. Derm: sutures removed by ED provider wound intact steri-strips applied and covered with a finger splint left forefinger. Pt verbalized understanding of and agrees to plan of care discharge instructions given pt ambulated with steady gait to exit accompanied by spouse. Vital Signs: 18:55 BP 162 / 98; Pulse 79; Resp 16 S; Temp 98.4(O); Pulse Ox 96% on R/A; Weight 145.15 kg jl7 (R); Height 6 ft. 1 in. (185.42 cm) (R); 18:55 Body Mass Index 42.22 (145.15 kg, 185.42 cm) jl7 ED Course: 18:25 Patient arrived in ED. as 18:51 Evelyn Pierce F[facility]-C [facility]. kb 18:51 Mata Newton MD is Attending Physician. kb 18:55 Triage completed. jl7 18:55 Arm band placed on right wrist. jl7 19:51 steri-strips and splint applied to left forefinger pt tolerated well. bb 19:52 No provider procedures requiring assistance completed. Patient did not have IV access bb during this emergency room visit. 19:53 Patient has correct armband on for positive identification. bb Administered Medications: No medications were administered Outcome: 19:17 Discharge ordered by . kb 19:52 Discharged to home ambulatory, with family. bb 19:52 Condition: stable 19:52 Discharge instructions given to patient, Instructed on discharge instructions, follow up and referral plans. wound care, Demonstrated understanding of instructions, follow-up care, wound care. 19:53 Patient left the ED. bb Signatures: Evelyn Pierce FNP-C FNP-Ckb Martinez, Amelia as Ballard, Brenda RN RN bb Dariela Bolaños RN RN jl7
--- NOTE | 2019-05-27 19:17 | EDPHYS ---
Physician Documentation [facility] Name: Hamzah Mckeon Age: 44 yrs Sex: Male : 1975 Arrival Date: 05/27/2019 Time: 18:25 Bed 12 Private MD: Mata Mcgill HPI: 05/27 19:14 This 44 yrs old Male presents to ER via Ambulatory with complaints of Suture kb Removal. 19:14 The patient has sutures on the palmar aspect of middle phalanx of left index finger. kb Previous treatment: The patient was initially treated 10 day(s) ago, the care was rendered at [facility], Treatment type: The patient's original treatment included sutures. Sutures/ced progress: The patient has no c/o's. The wound is well-healing with no redness, swelling, discharge, or dehiscence reported. The patient has not experienced similar symptoms in the past. The patient has not recently seen a physician. Historical: - Allergies: 18:55 Losartan; jl7 - Home Meds: 18:55 atorvastatin Oral [Active]; carvedilol Oral [Active]; Hydrochlorothiazide Oral jl7 [Active]; Metformin Oral [Active]; - PMHx: 18:55 Diabetes - NIDDM; Hypertension; jl7 - Immunization history:: Adult Immunizations up to date. - Coronavirus screen:: The patient has NOT traveled to [place], [place], or [place] in the past 14 days. Proceed with normal triage process as indicated. - Social history:: Smoking status: Patient denies any tobacco usage or history of. - Ebola Screening: : No symptoms or risks identified at this time. ROS: 19:16 Constitutional: Negative for fever, chills, and weight loss, Neck: Negative for injury, kb pain, and swelling, Cardiovascular: Negative for chest pain, palpitations, and edema, Respiratory: Negative for shortness of breath, cough, wheezing, and pleuritic chest pain, Abdomen/GI: Negative for abdominal pain, nausea, vomiting, diarrhea, and constipation, MS/Extremity: Negative for injury and deformity, Neuro: Negative for headache, weakness, numbness, tingling, and seizure. 19:16 Skin: Positive for laceration(s), of the palmar aspect of middle phalanx of left index finger, sutures in place. Exam: 19:15 Constitutional: This is a well developed, well nourished patient who is awake, alert, kb and in no acute distress. Head/Face: Normocephalic, atraumatic. Chest/axilla: Normal chest wall appearance and motion. Nontender with no deformity. No lesions are appreciated. Cardiovascular: Regular rate and rhythm with a normal S1 and S2. No gallops, murmurs, or rubs. Normal PMI, no JVD. No pulse deficits. Respiratory: Lungs have equal breath sounds bilaterally, clear to auscultation and percussion. No rales, rhonchi or wheezes noted. No increased work of breathing, no retractions or nasal flaring. Abdomen/GI: Soft, non-tender, with normal bowel sounds. No distension or tympany. No guarding or rebound. No evidence of tenderness throughout. MS/ Extremity: Pulses equal, no cyanosis. Neurovascular intact. Full, normal range of motion. Neuro: Awake and alert, GCS 15, oriented to person, place, time, and situation. Cranial nerves II-XII grossly intact. Motor strength 5/5 in all extremities. Sensory grossly intact. Cerebellar exam normal. Normal gait. 19:15 Skin: Wound recheck: Suture laceration closure: the wound is healing well, the edges are well approximated, no drainage, no erythema, no swelling, mild dehiscence. Vital Signs: 18:55 BP 162 / 98; Pulse 79; Resp 16 S; Temp 98.4(O); Pulse Ox 96% on R/A; Weight 145.15 kg jl7 (R); Height 6 ft. 1 in. (185.42 cm) (R); 18:55 Body Mass Index 42.22 (145.15 kg, 185.42 cm) jl7 Procedures: 19:16 Suture/Staple removal: Removed 9 sutures, from palmar aspect of middle phalanx of left kb index finger, site appears well healed, dressed with steristrips and splint. Patient tolerated well. MDM: 18:57 Patient medically screened. kb 19:14 Data reviewed: vital signs, nurses notes. Data interpreted: Pulse oximetry: on room air kb is 96 %. Interpretation: normal. Counseling: I had a detailed discussion with the patient and/or guardian regarding: the historical points, exam findings, and any diagnostic results supporting the discharge/admit diagnosis, the need for outpatient follow up, a family practitioner, to return to the emergency department if symptoms worsen or persist or if there are any questions or concerns that arise at home. 19:17 ED course: Finger splint applied to keep finger straight to facilitate healing . kb 05/27 19:15 [place] [facility] Order: apply steri strips; Complete Time: 19:35 kb 05/27 19:15 Order name: Finger Splint; Complete Time: 19:35 kb Administered Medications: No medications were administered Disposition: 05/28 07:38 Co-signature as Attending Physician, Mata Newton MD I agree with the assessment and bill plan of care. Disposition: 05/27/19 19:17 Discharged to Home. Impression: Encounter for removal of sutures. - Condition is Stable. - Discharge Instructions: Suture Removal, Care After. - Medication Reconciliation Form, Thank You Letter, Antibiotic Education, Prescription Opioid Use form. - Follow up: Emergency Department; When: As needed; Reason: Worsening of condition. Follow up: Private Physician; When: 2 - 3 days; Reason: Recheck today's complaints, Continuance of care, Re-evaluation by your physician. Signatures: Evelyn Pierce, BOILER INSPECTOR-C SABA-Mata Palma MD MD cha Ballard, Brenda, RN RN Dariela Sheridan RN RN jl7 Corrections: (The following items were deleted from the chart) 05/27 19:53 19:17 05/27/2019 19:17 Discharged to Home. Impression: Encounter for removal of bb sutures. Condition is Stable. Forms are Medication Reconciliation Form, Thank You Letter, Antibiotic Education, Prescription Opioid Use. Follow up: Emergency Department; When: As needed; Reason: Worsening of condition. Follow up: Private Physician; When: 2 - 3 days; Reason: Recheck today's complaints, Continuance of care, Re-evaluation by your physician. kb
== END 2019-05-27 19:53 | disposition home or self-care (01) ==
LOC: ER 18:25
DX: Z48.02 Encounter for removal of sutures (principal)
CPT/HCPCS: 99283

== ENCOUNTER 2019-08-22 21:05 | Emergency (ER) | payer OTHER ==
[2019-08-22] MEDS ORDERED: ACETAMINOPHEN 500 MG TAB ONE (21:57)
--- NOTE | 2019-08-22 22:39 | EDPHYS ---
Physician Documentation [facility] Name: Hamzah Mckeon Age: 44 yrs Sex: Male : 1975 Arrival Date: 08/22/2019 Time: 21:09 Bed 13 Private MD: ED Physician Marcos Leach HPI: 08/21 21:50 This 44 yrs old Male presents to ER via Ambulatory with complaints of High pkl Blood Pressure. 21:50 The patient has elevated blood pressure and discovered this at home, with a home pkl device. Onset: The symptoms/episode began/occurred today. Associated signs and symptoms: Pertinent positives: headache. Patient said his BP elevated today, highest was 202/114. Said his PCP ( Dr. Vallejo ) changed his BP medications earlier this week. Said he took 0.1 mg of Clonidine 2 hours ago and now BP is 174/90.. Historical: - Allergies: 21:27 Losartan; ll1 - PMHx: 21:27 Diabetes - NIDDM; Hypertension; ll1 - PSHx: 21:27 ankle/wrist/eye; ll1 - Immunization history:: Adult Immunizations up to date. - Social history:: Patient/guardian denies using street drugs, Smoking status: Patient denies any tobacco usage or history of. ROS: 21:50 Eyes: Negative for injury, pain, redness, and discharge, ENT: Negative for injury, pkl pain, and discharge, Neck: Negative for injury, pain, and swelling, Cardiovascular: Negative for chest pain, palpitations, and edema, Respiratory: Negative for shortness of breath, cough, wheezing, and pleuritic chest pain, Abdomen/GI: Negative for abdominal pain, nausea, vomiting, diarrhea, and constipation, Back: Negative for injury and pain, : Negative for injury, bleeding, discharge, and swelling, MS/Extremity: Negative for injury and deformity, Skin: Negative for injury, rash, and discoloration. 21:50 Neuro: Positive for headache, of the occipital region. Exam: 21:50 Head/Face: Normocephalic, atraumatic. Eyes: Pupils equal round and reactive to light, pkl extra-ocular motions intact. Lids and lashes normal. Conjunctiva and sclera are non-icteric and not injected. Cornea within normal limits. Periorbital areas with no swelling, redness, or edema. ENT: Nares patent. No nasal discharge, no septal abnormalities noted. Tympanic membranes are normal and external auditory canals are clear. Oropharynx with no redness, swelling, or masses, exudates, or evidence of obstruction, uvula midline. Mucous membranes moist. Neck: Trachea midline, no thyromegaly or masses palpated, and no cervical lymphadenopathy. Supple, full range of motion without nuchal rigidity, or vertebral point tenderness. No Meningismus. Chest/axilla: Normal chest wall appearance and motion. Nontender with no deformity. No lesions are appreciated. Cardiovascular: Regular rate and rhythm with a normal S1 and S2. No gallops, murmurs, or rubs. Normal PMI, no JVD. No pulse deficits. Respiratory: Lungs have equal breath sounds bilaterally, clear to auscultation and percussion. No rales, rhonchi or wheezes noted. No increased work of breathing, no retractions or nasal flaring. Abdomen/GI: Soft, non-tender, with normal bowel sounds. No distension or tympany. No guarding or rebound. No evidence of tenderness throughout. Back: No spinal tenderness. No costovertebral tenderness. Full range of motion. Skin: Warm, dry with normal turgor. Normal color with no rashes, no lesions, and no evidence of cellulitis. MS/ Extremity: Pulses equal, no cyanosis. Neurovascular intact. Full, normal range of motion. Neuro: Awake and alert, GCS 15, oriented to person, place, time, and situation. Cranial nerves II-XII grossly intact. Motor strength 5/5 in all extremities. Sensory grossly intact. Cerebellar exam normal. Normal gait. Vital Signs: 21:25 BP 202 / 94; Pulse 96; Resp 18; Temp 98.0; Pulse Ox 99% ; Pain 4/10; ll1 21:30 BP 178 / 90; Pulse 86; Pulse Ox 100% on R/A; vc 21:45 BP 171 / 93; Pulse 84; Pulse Ox 100% ; vc 22:00 BP 164 / 96; Pulse 78; Resp 18; Pulse Ox 100% on R/A; vc 22:15 BP 151 / 85; Pulse 79; Pulse Ox 100% ; vc 22:30 BP 144 / 75; Pulse 64; Resp 18; Pulse Ox 99% on R/A; vc MDM: 21:19 Patient medically screened. pkl 22:37 Data reviewed: vital signs, nurses notes. ED course: Patient feeling better. pkl Asymptomatic. Administered Medications: 21:53 Drug: Tylenol 1000 mg Route: PO; vc 22:30 Follow up: Response: No adverse reaction; Pain is decreased vc Disposition: 08/22/19 22:38 Discharged to Home. Impression: Uncontrolled hypertension. - Condition is Stable. - Medication Reconciliation Form, Thank You Letter, Antibiotic Education, Prescription Opioid Use form. - Follow up: Private Physician; When: 2 - 3 days; Reason: Re-evaluation by your physician. - Problem is new. - Symptoms have improved. Signatures: Marcos Leach MD MD pkl Aviva Darby RN RN vc Nikki Tena RN RN ll1 Corrections: (The following items were deleted from the chart) 22:59 22:38 08/22/2019 22:38 Discharged to Home. Impression: Uncontrolled hypertension. vc Condition is Stable. Forms are Medication Reconciliation Form, Thank You Letter, Antibiotic Education, Prescription Opioid Use. Follow up: Private Physician; When: 2 - 3 days; Reason: Re-evaluation by your physician. Problem is new. Symptoms have improved. pkl
--- NOTE | 2019-08-22 22:39 | ER ---
Nurse's Notes [facility] Name: Hamzah Mckeon Age: 44 yrs Sex: Male : 1975 Arrival Date: 08/22/2019 Time: 21:09 Bed 13 Private MD: Diagnosis: Uncontrolled hypertension Presentation: 08/21 21:25 Chief complaint: Patient states: Change in BP medication this past week. Took BP at ll1 home today, highest 202/114. + DECKER. Coronavirus screen: Proceed with normal triage. Patient denies a cough. Patient denies shortness of breath or difficulty breathing. Patient denies measured and/or subjective temperature greater than 100.4F prior to today's visit. Patient denies travel on a cruise ship or to a country the [facility] currently lists as an affected area. Patient denies contact with known and/or suspected case of COVID-19. Ebola Screen: Patient denies travel to an Ebola-affected area in the 21 days before illness onset. Initial Sepsis Screen: Does the patient meet any 2 criteria? HR > 90 bpm. No. Patient's initial sepsis screen is negative. Does the patient have a suspected source of infection? No. Patient's initial sepsis screen is negative. Risk Assessment: Do you want to hurt yourself or someone else? Patient reports no desire to harm self or others. Onset of symptoms was August 22, 2019. 21:25 Method Of Arrival: Ambulatory ll1 21:25 Acuity: CHAKA 3 ll1 Triage Assessment: 21:25 General: Appears in no apparent distress. uncomfortable, Behavior is calm, cooperative, vc appropriate for age. Pain: Complains of pain in head. Historical: - Allergies: 21:27 Losartan; ll1 - PMHx: 21:27 Diabetes - NIDDM; Hypertension; ll1 - PSHx: 21:27 ankle/wrist/eye; ll1 - Immunization history:: Adult Immunizations up to date. - Social history:: Patient/guardian denies using street drugs, Smoking status: Patient denies any tobacco usage or history of. Screenin:25 Abuse screen: Denies threats or abuse. Nutritional screening: No deficits noted. vc Tuberculosis screening: No symptoms or risk factors identified. Fall Risk None identified. Assessment: 21:30 General: Appears in no apparent distress. uncomfortable, Behavior is calm, cooperative, vc appropriate for age. Pain: Complains of pain in head. Neuro: Level of Consciousness is awake, alert, obeys commands, Oriented to person, place, time. Cardiovascular: Reports headache Denies chest pain, shortness of breath, Patient's skin is warm and dry. Respiratory: Airway is patent Respiratory effort is even, unlabored, Respiratory pattern is regular, symmetrical, Denies shortness of breath labored breathing. GI: No deficits noted. No signs and/or symptoms were reported involving the gastrointestinal system. : No signs and/or symptoms were reported regarding the genitourinary system. Derm: No deficits noted. 22:26 Reassessment: Patient appears in no apparent distress at this time. Patient and/or vc family updated on plan of care and expected duration. Pain level reassessed. Patient is alert, oriented x 3, equal unlabored respirations, skin warm/dry/pink. Patient states symptoms have improved. 22:58 Reassessment: Patient appears in no apparent distress at this time. Patient and/or vc family updated on plan of care and expected duration. Pain level reassessed. Patient is alert, oriented x 3, equal unlabored respirations, skin warm/dry/pink. Patient denies pain at this time. Patient states feeling better. Patient states symptoms have improved. Vital Signs: 21:25 BP 202 / 94; Pulse 96; Resp 18; Temp 98.0; Pulse Ox 99% ; Pain 4/10; ll1 21:30 BP 178 / 90; Pulse 86; Pulse Ox 100% on R/A; vc 21:45 BP 171 / 93; Pulse 84; Pulse Ox 100% ; vc 22:00 BP 164 / 96; Pulse 78; Resp 18; Pulse Ox 100% on R/A; vc 22:15 BP 151 / 85; Pulse 79; Pulse Ox 100% ; vc 22:30 BP 144 / 75; Pulse 64; Resp 18; Pulse Ox 99% on R/A; vc ED Course: 21:09 Patient arrived in ED. ag3 21:18 Aviva Darby, MYNOR is Primary Nurse. vc 21:19 Marcos Leach MD is Attending Physician. pkl 21:26 Triage completed. ll1 21:27 Arm band placed on Patient placed in an exam room, on a stretcher. ll1 21:30 Patient has correct armband on for positive identification. Bed in low position. Call vc light in reach. Pulse ox on. NIBP on. 22:57 No provider procedures requiring assistance completed. Patient did not have IV access vc during this emergency room visit. Administered Medications: 21:53 Drug: Tylenol 1000 mg Route: PO; vc 22:30 Follow up: Response: No adverse reaction; Pain is decreased vc Outcome: 22:38 Discharge ordered by . amish 22:58 Discharged to home ambulatory. vc 22:58 Condition: good 22:58 Discharge instructions given to patient, Instructed on discharge instructions, follow up and referral plans. Demonstrated understanding of instructions, follow-up care. 22:59 Patient left the ED. vc Signatures: Marcos Leach MD MD pkl Gomez, Alice ag3 Aviva Darby RN RN Nikki Tran RN RN ll1 Corrections: (The following items were deleted from the chart) 22:16 21:45 Reassessment: Patient states, "I do not want to get a shot, I do not want to get vc poked, I just want to make sure my heart is ok, do you know how long this will take?" vc 22:16 22:10 Reassessment: Patient states, "I just want to leave, is there anyway I can just vc go?" Provider notified and spoke with patient. Patient to leave AMA. vc
[2019-08-22 23:26] VITALS: TEMP 98
[2019-08-22 23:32] VITALS: BP 144/75; O2SAT 99
== END 2019-08-22 22:59 | disposition home or self-care (01) ==
LOC: ER 21:05
DX: I10 Essential (primary) hypertension (principal); E11.9 Type 2 diabetes mellitus without complications
CPT/HCPCS: 99283